=== PATIENT | male | born 1950 | race Two or more races ===

== ENCOUNTER 2016-10-10 10:20 | Emergency (ER) | payer MEDICARE, MEDICAID ==
[2016-10-10 11:00] LABS: ABSOLUTE NEUTROPHIL COUNT 6.7 K/mm3 (1.8-7.7); BASO # 0.1 K/mm3 (0.0-0.2); BASO % 0.6 % (0.2-1.0); EOS # 0.3 (0.0-0.5); EOS % 2.6 % (0.9-2.9); HEMATOCRIT 40.9 % (32.0-52.0); HEMOGLOBIN 12.5 gm/l (14.0-18.0); IMM NEUT # 0.1 K/mm3 (0-0.2); IMM NEUT% 1.1 % (0-1); LYMPH # 1.6 (1.0-4.8); LYMPH % 16.4 % (15-45); MEAN CELL VOLUME 84.2 fl (80.0-94.0); MEAN CORPUSCULAR HEMOGLOBIN 25.7 pg (27.0-31.0); MEAN CORPUSCULAR HGB CONC 30.6 g/dl (33.0-37.0); MEAN PLATELET VOLUME 10.1 fl (7.4-10.4); MONO # 1.2 (0.0-0.8); MONO % 12.1 % (4-12); NEUT % 67.2 % (43-75); PLATELET COUNT 491 K/mm3 (130-400); RED CELL DISTRIBUTION WIDTH 16.2 % (11.5-14.5)
[2016-10-10 11:18] LABS: INR 1.09; PROTHROMBIN TIME 11.5 SECONDS (9.3-11.4)
[2016-10-10 11:37] LABS: ALBUMIN 3.8 gm/dL (3.5-5.7); CALCIUM 9.3 mg/dL (8.6-10.3)
[2016-10-10 11:54] LABS: TROPONIN I < 0.01 ng/ml (0.0-0.06)
[2016-10-10 11:57] LABS: CKMB ISOENZYME 1.3 ng/ml (0.6-6.3)
== END 2016-10-10 12:25 | disposition home or self-care (01) ==
LOC: ED 10:20
DX: R53.1 Weakness (principal); R53.81 Other malaise; R50.9 Fever, unspecified; I10 Essential (primary) hypertension; I25.2 Old myocardial infarction; Z95.0 Presence of cardiac pacemaker